=== PATIENT | female | born 1980 | race American Indian/Alaskan Native ===

== ENCOUNTER 2018-02-03 12:42 | Emergency (ER) | payer OTHER ==
[2018-02-03 12:59] VITALS: RESP 20; TEMP 98; O2SAT 100
--- NOTE | 2018-02-03 13:33 | ED PDOC ---
HPI: Female Pain Time Seen by Provider: 02/03/18 13:07 Chief Complaint (Nursing): Female Genitourinary Chief Complaint (Provider): burning on urination History Per: Patient Additional Complaint(s): 37 yo female, no PMH, presents to ED with C/O lower abdominal cramping with painful/increased urination x 2 days. no fever or chills. no back pain, nausea vomiting or severe abdominal pain. Past Medical History Reviewed: Nursing Documentation, Vital Signs Vital Signs: Last Vital Signs Temp 98 F 02/03/18 12:57 Pulse 60 02/03/18 12:57 Resp 20 02/03/18 12:57 BP 152/111 H 02/03/18 12:57 Pulse Ox 100 02/03/18 12:57 - Medical History PMH: No Chronic Diseases - Surgical History Surgical History: No Surg Hx - Family History Family History: States: No Known Family Hx - Living Arrangements Living Arrangements: With Family - Social History Current smoker - smoking cessation education provided: No Alcohol: Social Drugs: Denies - Home Medications Home Medications: Ambulatory Orders Medication Instructions Recorded Phenazopyridine HCl [Pyridium] 100 mg PO TID #6 tab 02/03/18 Sulfamethoxazole/Trimethoprim 1 tab PO BID 5 Days tab 02/03/18 [Bactrim DS 800 mg-160 mg] - Allergies Allergies/Adverse Reactions: Allergies Allergy/AdvReac Type Severity Reaction Status Date / Time No Known Allergies Allergy Verified 02/03/18 12:57 Review of Systems ROS Statement: Except As Marked, All Systems Reviewed And Found Negative Gastrointestinal: Positive for: Abdominal Pain Genitourinary Female: Positive for: Dysuria, Frequency Physical Exam - Reviewed Nursing Documentation Reviewed: Yes Vital Signs Reviewed: Yes - Physical Exam Appears: Positive for: Well, Non-toxic, No Acute Distress Head Exam: Positive for: ATRAUMATIC, NORMAL INSPECTION, NORMOCEPHALIC Skin: Positive for: Normal Color, Warm, DRY Eye Exam: Positive for: EOMI, Normal appearance, PERRL ENT: Positive for: Normal ENT Inspection Neck: Positive for: Normal, Painless ROM Cardiovascular/Chest: Positive for: Regular Rate, Rhythm Respiratory: Positive for: CNT, Normal Breath Sounds Gastrointestinal/Abdominal: Positive for: Normal Exam, Soft Back: Positive for: Normal Inspection Extremity: Positive for: Normal ROM Neurologic/Psych: Positive for: Alert, Oriented - ECG O2 Sat by Pulse Oximetry: 100 Medical Decision Making Medical Decision Making: Preg (-) Dip (+) leuks, nites and blood Medicated with Bactrim and Pyridum while in ED\ repeat BP: 148/82 Disposition - Clinical Impression Clinical Impression: Urinary tract infection - Patient ED Disposition Is Patient to be Admitted: No - Disposition Disposition: Routine/Home Disposition Time: 13:54 Condition: STABLE Prescriptions: Phenazopyridine HCl [Pyridium] 100 mg PO TID #6 tab Sulfamethoxazole/Trimethoprim [Bactrim DS 800 mg-160 mg] 1 tab PO BID 5 Days tab Instructions: Urinary Tract Infections in Adults Forms: [facility] (Arabic)
[2018-02-03] MEDS ORDERED: Tmp-Smz 800 mg-160 mg DS Tab PO STA (13:47)
[2018-02-03 14:01] LABS: SQUAMOUS EPITHIAL 10 /hpf (0-5); URINE BACTERIA MOD (<OCC); URINE BILIRUBIN NEGATIVE (NEGATIVE); URINE BLOOD SMALL (NEGATIVE); URINE CLARITY CLOUDY (Clear); URINE COLOR AMBER (YELLOW); URINE GLUCOSE (UA) NEG (Normal); URINE LEUKOCYTE ESTERASE TRACE Leu/uL (Negative); URINE PROTEIN NEGATIVE (NEGATIVE); URINE UROBILINOGEN 0.2-1.0 mg/dL (0.2-1.0)
[2018-02-03] MEDS ORDERED: Tmp-Smz 800 mg-160 mg DS Tab ONE (14:01)
[2018-02-03 14:07] VITALS: PULSE 84
[2018-02-03 15:03] VITALS: BP 119/63
== END 2018-02-03 15:02 | disposition home or self-care (01) ==
LOC: H.ER 12:42
DX: N39.0 Urinary tract infection, site not specified (principal); I10 Essential (primary) hypertension
CPT/HCPCS: 81003; 81025; 96372; 99283; J1885